=== PATIENT | male | born 1935 | race Caucasian/White ===

== ENCOUNTER 2019-03-02 10:39 | Emergency (ER) | payer MEDICARE ==
[~2019-03-02] VITALS: Ht 180.3 cm; Wt 71.2 kg
[2019-03-02 11:00] LABS: URINE BILIRUBIN NEGATIVE (Negative); URINE BLOOD NEGATIVE (Negative); URINE CLARITY CLEAR; URINE COLOR YELLOW; URINE GLUCOSE-RANDOM NEGATIVE (Negative); URINE KETONES NEGATIVE (Negative); URINE LEUKOCYTES-REFLEX NEGATIVE (Negative); URINE NITRITE-REFLEX NEGATIVE (Negative); URINE PROTEIN NEGATIVE (Negative); URINE UROBILINOGEN 0.2 E.U./dl (0.2-1.0)
[2019-03-02 11:35] LABS: CALCIUM 8.7 mg/dL (8.5-10.1); CREATININE 1.2 mg/dL (0.6-1.3); POTASSIUM 4.2 mmol/L (3.5-5.1)
[2019-03-02] MEDS ORDERED: FLOMAX0.4 MG PO (12:12)
[2019-03-02 13:04] VITALS: BP 145/70
== END 2019-03-02 13:05 | disposition home or self-care (01) ==
LOC: M.ERS 10:39
PROVIDERS: Emergency Medicine Emergency Medical Services
DX: R33.9 Retention of urine, unspecified (principal)

== ENCOUNTER 2019-04-27 17:46 | Emergency (ER) | payer OTHER, MEDICAID ==
[~2019-04-27] VITALS: Ht 180.3 cm; Wt 73.5 kg
[~2019-04-27 17:46] MED LIST: FLOMAX0.4 MG PO
[2019-04-27 18:25] LABS: ABSOLUTE BASOPHILS 0.1 thou/uL (0.0-0.2); ABSOLUTE EOSINOPHILS 0.1 thou/uL (0.0-0.7); ABSOLUTE LYMPHOCYTES 1.9 thou/uL (0.8-5.3); ABSOLUTE MONOCYTES 0.5 thou/uL (0.0-1.2); ABSOLUTE NEUTROPHILS 4.9 thou/uL (1.6-8.1); BASOPHILS 0.8 %; HEMATOCRIT 43.7 % (42.0-52.0); HEMOGLOBIN 14.9 gm/dL (14.0-18.0); LYMPHOCYTES 25.7 %; MCH 30.8 pg (26.0-34.0); MCHC 34.1 g/dL (28.0-37.0); MCV 90.4 fL (80.0-100.0); MONOCYTES 6.3 %; MPV 8.4 fl. (7.2-11.1); NUCLEATED RBCS 0 /100WBC; PLATELET COUNT* 219 thou/uL (150-400); POLYS 66.2 %; RBC 4.83 mil/uL (4.50-6.00); RDW-CV 13.9 % (10.5-14.5); WBC 7.4 thou/uL (4.0-11.0)
[2019-04-27 18:36] LABS: CALCIUM 8.9 mg/dL (8.5-10.1); CREATININE 1.2 mg/dL (0.6-1.3); POTASSIUM 3.9 mmol/L (3.5-5.1)
[2019-04-27 18:39] LABS: URINE BILIRUBIN NEGATIVE (Negative); URINE BLOOD TRACE (Negative); URINE CLARITY SL CLOUDY; URINE COLOR YELLOW; URINE GLUCOSE-RANDOM NEGATIVE (Negative); URINE KETONES NEGATIVE (Negative); URINE NITRITE-REFLEX NEGATIVE (Negative); URINE PROTEIN 1+ (Negative); URINE UROBILINOGEN 0.2 E.U./dl (0.2-1.0)
[2019-04-27 18:40] LABS: ALBUMIN 4.1 g/dL (3.4-5.0); TOTAL BILIRUBIN 1.4 mg/dL (<0.1-1.0); TOTAL PROTEIN 7.6 g/dL (6.4-8.2)
[2019-04-27 18:42] LABS: URINE LEUKOCYTES-REFLEX 3+ (Negative)
[2019-04-27 18:48] LABS: SQUAMOUS 0-3 Few /LPF (0-3); URINE WBC-REFLEX >25 Many /HPF (0-5)
[2019-04-27 18:50] LABS: BACTERIA-REFLEX 1-9 Few /HPF (None Seen); CASTS None Seen /LPF (None Seen); CRYSTALS None Seen /LPF (None Seen); MUCUS None Seen strn/LPF (None Seen); URINE RBC 0-2 Rare /HPF (0-2); YEAST-REFLEX Present (None Seen)
[2019-04-27] MEDS ORDERED: BACTRIM DS TAB1 EACH PO (18:53)
[2019-04-27] MEDS ORDERED: PYRIDIUM200 M2 PO (18:53)
[2019-04-27 19:26] VITALS: BP 112/65
== END 2019-04-27 19:27 | disposition home or self-care (01) ==
LOC: M.ERS 17:46
PROVIDERS: Personal Emergency Response Attendant
DX: N39.0 Urinary tract infection, site not specified (principal); R33.9 Retention of urine, unspecified